=== PATIENT | male | born 1950 | race Caucasian/White ===

== ENCOUNTER 2019-01-19 09:17 | Day surgery (SDC) | payer MEDICARE ==
[2019-01-13 15:32] VITALS: BMI 22.3
[~2019-01-19 09:17] MED LIST: ASPIRIN 325 MG TAB PO STA; SODIUM CHLORIDE 0.9% 1,000 ML in EMPTY BAG 1 BAG IV ONE
[2019-01-19] MEDS ORDERED: SODIUM CHLORIDE 0.9% 1,000 ML IV ONE (10:08)
[2019-01-19] MEDS ORDERED: SODIUM CHLORIDE 0.9% 500 ML 500 ML with niCARdipine 6.25 MG, NITROGLYCERIN-D5W PMX 0.05... IV ONE ×4 (11:00)
[2019-01-19] MEDS ORDERED: MIDAZOLAM (PF) 2 MG/2 ML VIAL IVP ONE (12:02)
[2019-01-19] MEDS ORDERED: LIDOCAINE 1% INJ 10MG/ML (20 ML MDV) SQ ONE (12:04)
[2019-01-19] MEDS ORDERED: HYDROmorphone 1 MG/ML 1 ML SYRINGE IVP ONE (12:13)
[2019-01-19] MEDS ORDERED: HEPARIN SODIUM 1,000 UN/ML (10ML VL) IV ONE (12:16)
[2019-01-19] MEDS ORDERED: CLOPIDOGREL 75 MG TAB PO ONE (13:05)
[2019-01-19] MEDS ORDERED: IOPAMIDOL-250 100ML BTL INTRAARTER ONE (13:10)
[2019-01-19] MEDS ORDERED: SODIUM CHLORIDE 0.9% 1,000 ML IV SCH (13:30)
--- NOTE | 2019-01-19 17:39 | AN ---
ANGIOGRAPHY REPORT DATE OF SERVICE: January 19, 2019 PERFORMING PHYSICIAN: Martin Veras MD, pediatric intensive physician. PROCEDURE PERFORMED: 1. 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 2. Atherectomy of the left popliteal using the orbital atherectomy device from [facility]. 3. Successful balloon angioplasty and stenting of the left popliteal using Zilver PTX drug-coated stent with an excellent angiographic results. 4. Selective left popliteal angiogram. INDICATION: This is a 68-year-old gentleman who was seen recently by Dr. Chaudhary for critical limb ischemia of the left foot. He, at that point, Dr. Chaudhary felt no pedal pulses. Severe obstructive PAD was suspected and because of that, the patient was referred to see me. He underwent a peripheral angiogram and that revealed occluded left popliteal. The patient was brought today to undergo a BISQUE GRADER of the left popliteal. APPROACH: Left posterior tibial artery in ipsilateral retrograde technique. COMPLICATION: None. SEDATION: Level of sedation was moderate. Sedation of 70 minutes. PROCEDURE DESCRIPTION: After obtaining an informed consent, the patient was brought to the cardiac laboratory asst. I accessed the left dorsal posterior tibial artery using micropuncture technique under ultrasound guidance and I placed the slender 4-5 Cymro sheath. I did after that start infusing a cocktail including nitroglycerin, heparin, and verapamil. After that, anticoagulation was initiated using heparin, where the patient was given 6000 units of heparin IV. I did selective left popliteal angiogram with injection through the pedal sheath. 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 I did exchange my wire into a ViperWire. I did atherectomy using the orbital atherectomy device where I did atherectomy under low, medium, and high speed. After that, I did balloon angioplasty using a 6 mm chocolate balloon. The following angiogram showed residual tight lesion in the left popliteal and because of that I decided to stent that segment. I did place 8 x 80 mm Zilver PTX drug-coated stent where the stent was positioned under fluoroscopy guidance and deployed under fluoroscopy guidance. The stent was post dilated using 7 mm balloon. Then the lesion distal lesion in the distal left popliteal I did balloon angioplasty on using drug- coated balloon. The following angiogram showed excellent angiographic results. By the end of the procedure, I was able to obtain 3 2+ pulses in both dorsalis pedis and popliteal. POSTPROCEDURE MANAGEMENT: 1. Dual anti-platelet therapy. 2. Risk factor modifications. 3. Follow up with the patient. ERIC / INDIRAN: [id number] /
[2019-01-19] MEDS: HYDROcodone/APAP 10-325MG 1 EACH TAB PO PRN ×2 (18:35→21:39)
[2019-01-19] MEDS ORDERED: HYDROmorphone 0.5 MG/0.5 ML SYRINGE IVP PRN (19:50)
[2019-01-19] MEDS ORDERED: ATORVASTATIN 20 MG TAB PO SCH (21:00)
[2019-01-20 04:15] VITALS: RESP 16
[2019-01-20 07:12] LABS: African American GFR (CKD) >90 (>60 ml/min/1.73 sqM)
[2019-01-20] MEDS ORDERED: PANTOPRAZOLE 40 MG TABLET PO SCH (07:30)
--- NOTE | 2019-01-20 07:43 | IR ---
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 Fluoroscopy was provided to the referring clinician. 12.4 minutes of fluoroscopy provided.
--- NOTE | 2019-01-20 08:35 | P.PN ---
Subjective Progress Note Date: 01/20/19 Discharge note This is a 68-year-old gentleman who has critical limb ischemia of the left foot severe obstructive PAD, hypertension, hyperlipidemia, nicotine dependence, admitted to the hospital and underwent successful arthrectomy of the left popliteal with successful angioplasty and stenting of the left popliteal. He was seen and examined this morning, slept well last night, no complaints this morning. Hemodynamically he is stable. Objective - Vital Signs Vital signs: Vital Signs Temp 98.3 F 01/20/19 04:00 Pulse 50 L 01/20/19 04:00 Resp 16 01/20/19 04:00 BP 112/77 01/20/19 04:00 Pulse Ox 96 01/20/19 04:00 Intake & Output 01/19/19 01/20/19 01/20/19 18:59 06:59 18:59 Intake Total 1585 220 Output Total 925 Balance 660 220 Weight 71.8 kg Intake: IV 1105 Intake, IV Titration 100 Amount Sodium Chloride 0.9% 1, 100 000 ml @ 100 mls/hr IV . Q10H CANDY Rx#:[id number] Oral 480 120 Output: Urine 925 Other: Voiding Method Urinal Urinal # Voids 2 - Exam PHYSICAL EXAMINATION: GENERAL: 68-year-old gentleman in no acute distress at the time of my examination HEENT: Head is atraumatic, normocephalic. Pupils equal, round. Sclera anicteric. Conjunctiva are clear. Mucous membranes of the mouth are moist. Neck is supple. There is no elevated jugular venous pressure. No carotid bruit is heard. HEART EXAMINATION: Heart S1, S2 normal. No murmur or gallop heard. CHEST EXAMINATION: Lungs are clear to auscultation and precussion. No chest wall tenderness is noted on palpation or with deep breathing. ABDOMEN: Soft, nontender. Bowel sounds are heard. No organomegaly noted. EXTREMITIES: 2+ peripheral pulses with no evidence of peripheral edema and no calf tenderness noted. Left posterior tibial pulse one plus, small area of swelling, no hematoma, fluid is warm. NEUROLOGIC patient is awake, alert and oriented 3 . . - Labs CBC & Chem 7: 01/20/19 06:40 Assessment and Plan Plan: Assessment and plan #1 status post successful angioplasty and stenting of the left popliteal #2 severe PAD #3 hypertension #4 hyperlipidemia #5 nicotine dependence Plan Patient will be discharged home today on dual antiplatelet therapy in the form of aspirin and Plavix, we will continue the rest of his other medications as well. Follow-up appointment with Dr. Schneider in the office post discharge. DNP note has been reviewed, I agree with a documented findings and plan of care. Patient was seen and examined.
[2019-01-20] MEDS ORDERED: ASPIRIN 81 MG PO SCH (09:00)
[2019-01-20] MEDS ORDERED: CLOPIDOGREL 75 MG TAB PO SCH (09:00)
[2019-01-20] MEDS ORDERED: amLODIPine 10 MG TAB PO SCH (09:00)
[2019-01-20] MEDS ORDERED: LISINOPRIL 20 MG TAB PO SCH (09:00)
[2019-01-20] MEDS ORDERED: ASPIRIN 325 MG TAB PO SCH (09:00)
[2019-01-20 09:39] VITALS: BP 134/81; PULSE 63; TEMP 98.1
== END 2019-01-20 09:41 | disposition home or self-care (01) ==
LOC: CATHCVL 09:17 → 3SCARD 13:10 → CATHCVL 01-20 09:41
PROVIDERS: ATTEND Internal Medicine Interventional Cardiology
DX: I70.212 Atherosclerosis of native arteries of extremities with intermittent claudication, left leg (principal); I70.92 Chronic total occlusion of artery of the extremities; Z95.820 Peripheral vascular angioplasty status with implants and grafts; I10 Essential (primary) hypertension; E78.5 Hyperlipidemia, unspecified; F17.210 Nicotine dependence, cigarettes, uncomplicated; Z82.49 Family history of ischemic heart disease and other diseases of the circulatory system; Z79.82 Long term (current) use of aspirin; Z79.891 Long term (current) use of opiate analgesic; Z79.899 Other long term (current) drug therapy; Z88.2 Allergy status to sulfonamides
CPT/HCPCS: 37227; 76937; 82565; C1769 ×5; C1894; C1714; C1753; C2623; C1874; C1725; J1644 ×2; J2001; J1170; Q9966; J2250

== ENCOUNTER → 2022-09-01 | Outpatient (CLI) | payer MEDICARE ==
[2022-09-01 08:38] VITALS: BP 165/90; PULSE 62; RESP 18; TEMP 98.4
--- NOTE | 2022-09-01 09:20 | XR ---
EXAMINATION TYPE: XR lumbar spine 2 or 3V DATE OF EXAM: 09/01/2022 CLINICAL HISTORY: pain TECHNIQUE: Three views of the lumbar spine are submitted. COMPARISON: None. FINDINGS: There are 5 lumbar type vertebral bodies identified. Curvature convex to the right. Postoperative ch anges of prior laminectomy. The lumbar spine shows satisfactory alignment without evidence of acute f racture or dislocation. Vertebral body heights are within normal limits. Moderate degenerative disc space narrowing L3-L5 S1. The overlying soft tissue appears unremarkable. IMPRESSION: No acute fracture or dislocation is seen in the lumbar spine. ICD 10 NO FRACTURE, INITIAL EVALUATION
--- NOTE | 2022-09-01 14:53 | P.PAINPG ---
PQRS Measure Charge Sheet Comment: HISTORY OF PRESENT ILLNESS: 72 yr old male as a referral from presents today w severe and chronic LBP secondary to DDD, spondylosis and facet arthropathy without myelopathy for evaluation. Pt states pain level is at 10 /10 in intensity, constant, localized in the mid to lower lumbar spine, burning in character w shooting pain towards the BL feet. Pain is provoked by sitting for periods of 30 or more. Pain is alleviated by medications (Fentanyl patches, Tyl, Ibu), topicals, injections, repositioning and rest. PMH: CAD, GERD, HTN, Musculoskeletal Disorder, PAD, MDD PSH: Femoral Artery Stent (2006), Failed SCS Trial, L2-L4 Laminectomy, LESIs, BL RFA L3-L5 SH: Former tobacco user, No ETOH abuse, No illicit drug use. lives in assisted living facility. FH: Non contributory All: See list Meds: See list REVIEW OF ORGAN SYSTEMS: CONSTITUTIONAL: No fevers or chills. No recent weight loss. NEUROLOGICAL: + numbness and tingling along the distal extremities. No seizure disorders or headaches. MUSCULOSKELETAL: + pain PSYCHIATRIC: Denies current depression or suicidal thoughts. Physical Examinations : Constitutional : Cooperative , not in acute distress . Neurologic : Cranial nerve II to XII intact. No focal neurological deficits. Psychiatric : alert & oriented x 3. Matching mood & appropriate affect. Judgment & insight intact. Musculoskeletal : Cervical Spine Motor strength in the deltoid and biceps: Normal right side. Normal Left side Motor strength biceps and the wrist extensors: Normal right side . Normal left side Motor strength in the triceps muscle: Normal right side. Normal left side Deep tendon reflexes: Normal at the biceps. Normal at Brachioradialis. Normal at triceps Vertebral body tenderness to deep palpation over Cervical facet loading test: positive bilaterally Spurling test: positive bilaterally Neck distraction test: positive bilaterally Jazmyne sign: positive bilaterally Lumbar spine Motor strength lower extremities ,thigh and legs 5/5 Right side , 5/5 Left side Deep tendon reflexes : Normal Knee Jerk. Normal Ankle Jerk Vertebral body tenderness over L5 Lumbar facet Loading Test: positive Right / positive Left Range of motion of the lumbar spine Flexion 30 degrees, extension 10 degrees Straight Leg Raise test: Left/ Right positive at degree Jaren test: positive right / positive left. Severe tenderness over the Sacroiliac joint on the Right / Left sides Gaenslen test: positive bilaterally Seated flexion test: positive bilater ally. Sacral spine : Severe tenderness over the Sacroiliac joint: right side / left side Range of motion: Flexion of the lumbar spine <60 degrees Range of motion: Extension of the lumbar spine <20 degrees Gaenslen's Test positive Ace's Test positive Jaren test: positive right side / left side Thigh Thrust Test Sacral Thrust Test Imaging: MRI without contrast of the lumbar spine from 01/08/2012 reviewed Assessment/ Plan : Lumbar DDD Recommendation of x ray of the lumbar spine Dx: M51.36 May need additional testing if indicated. May follow up in the clinic within 2 wks for a re evaluation. All questions answered. I have spent greater than 30 minutes on patient care today. Dr Zhou was available by phone for the evaluation of this patient. The time was used to review the medical records including relevant urine studies and Prescription history (MAPs), review of the available imaging, evaluation and examination of the patient, coordination of care with the medical staff and if applicable referring physicians, as well as creation of the medical record PQRS Narrative: Smoking Status Never smoker Narcotic Agreement Date Signed 11/08/12 Home Medications: Ambulatory Orders Pantoprazole Sodium [Protonix] 40 mg PO DAILY 12/11/14 amLODIPine BESYLATE/BENAZEPRIL [Lotrel 10-20 MG] 1 tab PO DAILY 12/11/14 Aspirin 81 mg PO DAILY 01/13/19 fentaNYL 100MCG/HR PATCH [Duragesic 100MCG/HR] 100 mcg TOPICAL Q48H 01/13/19 Atorvastatin [Lipitor] 20 mg PO HS #30 tab 01/20/19 Clopidogrel [Plavix] 75 mg PO DAILY #30 tab 01/20/19 Controlled Substance Measures - Controlled Substance Measures Is patient prescribed a controlled substance at discharge?: No
== END ==
LOC: PNWHC3 07:51
PROVIDERS: ATTEND Specialist
DX: M47.816 Spondylosis without myelopathy or radiculopathy, lumbar region (principal); M51.36 Other intervertebral disc degeneration, lumbar region; G89.29 Other chronic pain; I25.10 Atherosclerotic heart disease of native coronary artery without angina pectoris; K21.9 Gastro-esophageal reflux disease without esophagitis; I10 Essential (primary) hypertension; R29.91 Unspecified symptoms and signs involving the musculoskeletal system; I73.9 Peripheral vascular disease, unspecified; F32.9 Major depressive disorder, single episode, unspecified; Z88.2 Allergy status to sulfonamides
CPT/HCPCS: 72100; G0463; 99211

== ENCOUNTER → 2022-09-17 | Outpatient (CLI) | payer MEDICARE ==
[2022-09-17 11:40] VITALS: BP 128/84; PULSE 71; RESP 18; TEMP 98
--- NOTE | 2022-09-17 14:42 | P.PAINPG ---
PQRS Measure Charge Sheet Comment: A 72 yr old male with a history of severe and chronic LBP secondary to post laminectomy syndrome presents today for LBP evaluation. Pain level is provoked at 10 /10 in intensity, constant, localized in the lumbar spine, dull in character w shooting towards the BL hips and BL feet. Pain is provoked by bendin g. Pain is alleviated with medications (Fentanyl 100 MCG/HR, Tylenol), injections, repositioning and rest. Interventional pain procedures completed include BL RFA L3-L5, L2-L5 Laminectomy Patient is currently on Fentanyl 100mcg/hr, Tyl Patient denies any side effects of the medication(s), denies excessive drowsiness or sleepiness, denies suicidal ideation and reports that the current pain medication is helping to control the pain and improve activities of daily living. Patient denies any motor or sensory deficits. Patient denies any fever or night sweats, denies any change in the bowel movements or urination. Physical Examination: -Constitutional: Cooperative. Not in acute distress . - Neurologic: Cranial nerve II to XII intact. No focal neurological deficits. - Psychatric: Alert & oriented x 3. Matching mood & appropriate affect. Judgment and insight intact. - Musculoskeletal: Cervical spine: Muscle bulk/ tone/ strength in the bilateral upper extremities normal Vertebral body tenderness to palpation over Spurling test positive Distraction test positive Facet loading test positive TTP Thoracic spine Muscle bulk / tone/ strength in the bilateral paraspinal muscles normal Vertebral body tender to palpation over Facet loading test positive TTP Lumbar spine: Motor bulk/ tone/ strength lower extremities , thigh and legs : 5/5 Deep tendon reflexes : Normal Knee Jerk. Normal Ankle Jerk . Vertebral body tenderness to palpation over L5 Lumbar Facet Loading Test positive Straight Leg Raise: positive at 30 degrees right side/ left side Gaenslen's Test positive Sacral spine : Severe tenderness over the Sacroiliac joint: right side / left side Range of motion: Flexion of the lumbar spine <60 degrees Range of motion: Extension of the lumbar spine <20 degrees Gaenslen's Test positive right side / left side Jaren test: positive right side / left side Thigh Thrust Test positive right side / left side Sacral Thrust Test positive right side / left side Imaging: X-ray of the lumbar spine from 09/01/22 reviewed Assessment and plan: Chronic LBP secondary to post laminectomy syndrome Recommendation of BL TFESI L5-S1 #1. May need a series of injections for optimal pain relief. Risks, benefits of procedure discussed and pt verbalized understanding. All questions answered. I have spent less than 30 minutes on patient care today. Dr Zhou was available by phone for the evaluation of this patient. The time was used to review the medical records including relevant urine studies and Prescription history (MAPs), review of the available imaging, evaluation and examination of the patient, coordination of care with the medical staff and if applicable referring physicians, as well as creation of the medical record PQRS Narrative: Smoking Status Never smoker Narcotic Agreement Date Signed 11/08/12 Hx Alcohol Use (MH) Yes: OCCASIONAL Home Medications: Ambulatory Orders Pantoprazole Sodium [Protonix] 40 mg PO DAILY 12/11/14 amLODIPine BESYLATE/BENAZEPRIL [Lotrel 10-20 MG] 1 tab PO DAILY 12/11/14 Aspirin 81 mg PO DAILY 01/13/19 fentaNYL 100MCG/HR PATCH [Duragesic 100MCG/HR] 100 mcg TOPICAL Q48H 01/13/19 Atorvastatin [Lipitor] 20 mg PO HS #30 tab 01/20/19 Clopidogrel [Plavix] 75 mg PO DAILY #30 tab 01/20/19 Controlled Substance Measures - Controlled Substance Measures Is patient prescribed a controlled substance at discharge?: No
== END ==
LOC: PNWHC3 08:41
PROVIDERS: ATTEND Specialist
DX: M96.1 Postlaminectomy syndrome, not elsewhere classified (principal); G89.29 Other chronic pain; Z79.82 Long term (current) use of aspirin; Z88.2 Allergy status to sulfonamides
CPT/HCPCS: 99211

== ENCOUNTER 2022-10-16 09:47 | Day surgery (SDC) | payer MEDICARE ==
[2022-10-16] MEDS ORDERED: LACTATED RINGERS 1,000 ML IV ONE (10:52)
[2022-10-16 11:05] VITALS: RESP 16; TEMP 97.7
[2022-10-16] MEDS ORDERED: DEXAMETHASONE SOD PHOSPHATE 10 MG/ML 1 ML VIAL ONE (11:15)
[2022-10-16] MEDS ORDERED: IOPAMIDOL M200 10 ML VIAL ONE (11:15)
[2022-10-16] MEDS ORDERED: MIDAZOLAM 2 MG/2 ML VIAL ONE (11:15)
--- NOTE | 2022-10-16 11:28 | P.PCN ---
Date of Procedure: 10/16/22 Description of Procedure: PREOPERATIVE DIAGNOSIS: Lumbar radiculopathy POSTOPERATIVE DIAGNOSIS: Lumbar radiculopathy PROCEDURES: 1. Right side L5-S1 Transforaminal epidural steroid injection under fluoroscopic guidance 2. Lumbar epidurogram. SURGEON: Serafin Alves TOOL AND MACHINE MAINTAINER: None ANESTHESIA: Local , IV sedation : Versed 2 mg Sedation supervision [id number] EBL: None. PROCEDURE INDICATIONS: This patient with a history of lumbar radiculopathy. Failed with conservative therapy came here for intervention procedure management. So came here for the intervention procedure . PROCEDURE DESCRIPTION: The patient was seen and identified in the preoperative area. Risks, benefits, complications, and alternatives were discussed with the patient. The patient agreed to proceed with the procedure and signed the consent. IV was started, and vital signs were stable. Patient was taken to the OR and time out was completed. The patient was placed in the prone position on procedure table and a pillow was placed under the abdomen to reduce lumbar lordosis. The lumbosacral area was prepped with ChloraPrep and draped in the usual sterile fashion. Critical pause was taken. Vital signs were closely monitored during the procedure. Using oblique fluoroscopy, the chin of the Ozzie dog at right side L5 and the skin and deeper tissues just below was localized with 1% lidocaine. Subsequently, a 22-gauge 3.5- spinal needle was advanced under a tunneled view fluoroscopic guidance just underneath the chin of the Ozzie dog at left L5. Under lateral fluoroscopy, the needle was then advanced to the posterior border of the L5 interforaminal space. After negative aspiration of CSF and blood and with no paresthesias, 1 mL of [id number] dye was injected good epidurogram and outlining of the L5 nerve root. After negative aspiration of CSF, blood and with no paresthesia 3 mL of block solution containing 10 MG of dexamethasone mixed with 2 mL of normal saline preservative-free was injected. Needle was removed intact. Skin was cleansed, and bandages were applied. COMPLICATIONS: None. DISPOSITION / PLANS: The patient was placed in a supine position and transferred to the recovery area in a stable condition for observation. There was no evidence of lower extremity motor or sensory deficit after the procedure. Patient was discharged from the recovery room after meeting discharge criteria. Home discharge instructions were given to the patient by the staff. The patient was reexamined prior to discharge. Patient can follow up with the pain clinic in 4 weeks duration.
[2022-10-16] MEDS ORDERED: LACTATED RINGERS 1,000 ML IV SCH (11:30)
[2022-10-16] MEDS ORDERED: IV FLUID CONTINUATION 1,000 ML IV ONE (11:32)
[2022-10-16 11:47] VITALS: BP 130/68; PULSE 53
--- NOTE | 2022-10-16 15:47 | FL ---
EXAMINATION TYPE: FL guided pain mgmt statistic DATE OF EXAM: 10/16/2022 FLUOROSCOPY Fluoroscopy time of 8 seconds was used during right transforaminal epidural injection. 3 image/s doc ument/s the procedure. DOSE AREA PRODUCT (DAP) UGY*M,MGY*CM: 1.5
== END 2022-10-16 12:03 | disposition home or self-care (01) ==
LOC: ORPAIN 09:47
DX: M54.16 Radiculopathy, lumbar region (principal); K21.9 Gastro-esophageal reflux disease without esophagitis; G90.09 Other idiopathic peripheral autonomic neuropathy; Z86.79 Personal history of other diseases of the circulatory system; Z90.49 Acquired absence of other specified parts of digestive tract; Z98.890 Other specified postprocedural states; Z79.899 Other long term (current) drug therapy; Z88.2 Allergy status to sulfonamides
CPT/HCPCS: 64483; J2250; J1100; Q9966

== ENCOUNTER → 2022-10-21 | Outpatient (CLI) | payer MEDICARE ==
[2022-10-21 13:49] LABS: African American GFR (CKD) >90 (>60 ml/min/1.73 sqM); Blood Urea Nitrogen 11 mg/dL (9-20); Non-African American GFR(CKD) 88 (>60 ml/min/1.73 sqM)
--- NOTE | 2022-10-21 15:45 | CT ---
EXAMINATION TYPE: CT angio abd aorta w/Runoff DATE OF EXAM: 10/21/2022 COMPARISON: None INDICATION: PAD. LEFT LITTLE TOES POOR CIRCULATION. HX OF LEFT FEMORAL STENTS DLP: 1672.10 mGycm, Automated exposure control for dose reduction was used. CONTRAST: 100 mL of Isovue 370. Study performed without Oral Contrast TECHNIQUE: Axial images were obtained from above the diaphragm to the pubic rami in the axial plane a t 5 mm thick sections. Reconstructed images are reviewed on the computer in the coronal plane. FINDINGS: Aorta and runoff. Vascular calcifications within the abdominal aorta. Renal arteries and calcificatio n at their origins. Superior mesenteric artery and celiac axis have calcification at their origins. N o aneurysmal dilatation is evident. No dissection is evident. Aorta bifurcates in the common carotid arteries. Internal and external iliac arteries are patent. Common femoral arteries appear normal. Pro kiah femoris and superficial femoral arteries proximally are normal. Scattered vascular calcifications are within the mid and distal superficial femoral arteries. No sign ificant flow-limiting stenosis is identified. Obturator canals are normal. Vascular calcifications wi thin the popliteal arteries. No focal stenosis. There may be some narrowing within the mid posterior popliteal artery. Left lower extremity vascular structures appear small in caliber than on the right. Trifurcation vess els are identified bilaterally in their proximal origins. Left peroneal artery terminates within the mid calf region. Right peroneal artery appears to terminate above the level of the ankle. Anterior an d posterior tibial arteries are patent at the level of the ankle. Limited CT sections are obtained the lung bases. There is a 1.2 cm spiculated posterior pleural-base d density left lung base. Series 6 image 6. Consider additional workup for neoplasm.. CT ABDOMEN: Liver: Normal Spleen: Normal Pancreas: Somewhat atrophic Adrenal glands: The adrenal glands are normal. Gallbladder: Surgically absent Kidneys: No masses are evident. No hydronephrosis is present. No cysts are present. Aorta: Vascular calcification is within the aorta. Inferior vena cava: Normal. CT PELVIS: Loops of bowel within the abdomen and pelvis are normal. There are loops of bowel which are incom pletely distended or lack oral contrast limiting their evaluation. Appendix: Normal as visualized. Urinary bladder: Normal. Genitourinary structures: Prostate is slightly prominent contains calcification Osseous structures: No suspicious lytic or sclerotic lesions. IMPRESSIONS: 1. Appears to be termination of the peroneal arteries within the calf for the left side and near the level of the ankle on the right. 2. Some focal mild narrowing of the mid posterior left popliteal artery may be present. 3. Caliber of the left superficial femoral artery is slightly smaller than on the right. Focal stenos is is not identified.
== END | disposition home or self-care (01) ==
LOC: RADCTMAIN 12:57
PROVIDERS: ATTEND Internal Medicine Interventional Cardiology
DX: I65.23 Occlusion and stenosis of bilateral carotid arteries (principal); I73.9 Peripheral vascular disease, unspecified; I77.89 Other specified disorders of arteries and arterioles; Z95.820 Peripheral vascular angioplasty status with implants and grafts
CPT/HCPCS: 82565; 84520; 75635; 36415; Q9967

== ENCOUNTER → 2023-02-25 | Outpatient (CLI) | payer MEDICARE ==
[2023-02-25 10:26] VITALS: BP 177/89; PULSE 63; RESP 16; TEMP 98
--- NOTE | 2023-02-25 14:17 | P.PAINPG ---
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 Pt states he experienced 25 % pain relief x 4 mo s/p procedure. He recently placed his in a senior living. Pain level is provoked at 10 /10 in intensity, constant, localized in the lumbar spine, dull in character w shooting towards the BL feet and toes. Pain is provoked by bending. Pain is alleviated with medications (Fentanyl 100 MCG/HR, Tylenol), injections, repositioning and rest. Pt is interested in an SCS. He is no longer receiving [place] 10/[address] Palomares. Agreed to terms of narcotics/ opiate agreement for [place] 7.5/325mg + Robaxin at this time. Oswestry axial pain score of 27. Interventional pain procedures completed include BL RFA L3-L5, L2-L5 Laminectomy, R TFESI L5-S1 x1 Patient is currently on Fentanyl 100mcg/hr, Tyl Patient denies any side effects of the medication(s), denies excessive drowsiness or sleepiness, denies suicidal ideation and reports that the current pain medication is helping to control the pain and improve activities of daily living. Patient denies any motor or sensory deficits. Patient denies any fever or night sweats, denies any change in the bowel movements or urination. Physical Examination: -Constitutional: Cooperative. Not in acute distress . - Neurologic: Cranial nerve II to XII intact. No focal neurological deficits. - Psychatric: Alert & oriented x 3. Matching mood & appropriate affect. Judg ment and insight intact. - Musculoskeletal: Cervical spine: Muscle bulk/ tone/ strength in the bilateral upper extremities normal Vertebral body tenderness to palpation over Spurling test positive Distraction test positive Facet loading test positive TTP Thoracic spine Muscle bulk / tone/ strength in the bilateral paraspinal muscles normal Vertebral body tender to palpation over Facet loading test positive TTP Lumbar spine: Motor bulk/ tone/ strength lower extremities , thigh and legs : 5/5 Deep tendon reflexes : Normal Knee Jerk. Normal Ankle Jerk . Vertebral body tenderness to palpation over L5 Lumbar Facet Loading Test positive Straight Leg Raise: positive at 30 degrees right side/ left side Gaenslen's Test positive Sacral spine : Severe tenderness over the Sacroiliac joint: right side / left side Range of motion: Flexion of the lumbar spine <60 degrees Range of motion: Extension of the lumbar spine <20 degrees Gaenslen's Test positive right side / left side Jaren test: positive right side / left side Thigh Thrust Test positive right side / left side Sacral Thrust Test positive right side / left side Imaging: X-ray of the lumbar spine from 09/01/22 reviewed Assessment and plan: Chronic LBP secondary to post laminectomy syndrome Recommendation of Behavioral Health eval re: G 89.4, M 54.16. Video viewed for SCS Trial. Risks, benefits of procedure discussed and pt verbalized understanding. Opiate/ narcotic agreement signed today 02/07/23. [place] 7.5/325mg #120 , Robaxin 500mg #60 w 1 RF. Use, side effects, adverse reactions and safe storage discussed. Pt acknowledged understanding. MAPS reviewed. All questions answered. I have spent less than 30 minutes on patient care today. Dr Zhou was available by phone for the evaluation of this patient. The time was used to review the medical records including relevant urine studies and Prescription history (MAPs), review of the available imaging, evaluation and examination of the patient, coordination of care with the medical staff and if applicable referring physicians, as well as creation of the medical record PQRS Narrative: Smoking Status Never smoker Narcotic Agreement Date Signed 11/08/12 Hx Alcohol Use (MH) Yes: OCCASIONAL Home Medications: Ambulatory Orders Pantoprazole Sodium [Protonix] 40 mg PO DAILY 12/11/14 Aspirin 81 mg PO DAILY 01/13/19 fentaNYL 100MCG/HR PATCH [Duragesic 100MCG/HR] 100 mcg TOPICAL Q48H 01/13/19 Atorvastatin [Lipitor] 20 mg PO HS #30 tab 01/20/19 Clopidogrel [Plavix] 75 mg PO DAILY #30 tab 01/20/19 Benazepril HCl 10 mg PO DAILY 10/15/22 DULoxetine HCL [Cymbalta] 60 mg PO DAILY 10/15/22 Ondansetron Odt [Zofran ODT] 4 mg PO DAILY PRN 10/15/22 Tamsulosin [Flomax] 0.4 mg PO DAILY 10/15/22 busPIRone HCL 15 mg PO Q6H PRN 10/15/22 Controlled Substance Measures - Controlled Substance Measures Is patient prescribed a controlled substance at discharge?: Yes When asked, does pt state using other controlled substances?: Yes If prescribed controlled substance>3 days was MAPS reviewed?: Yes If Rx opioid, was Start Talking consent form obtained?: Yes Was information provided regarding opioid addiction?: Yes
== END ==
LOC: PNWHC3 09:28
PROVIDERS: ATTEND Anesthesiology
DX: M51.16 Intervertebral disc disorders with radiculopathy, lumbar region (principal); M96.1 Postlaminectomy syndrome, not elsewhere classified; G89.4 Chronic pain syndrome; Z88.2 Allergy status to sulfonamides; Z79.01 Long term (current) use of anticoagulants; Z79.02 Long term (current) use of antithrombotics/antiplatelets; Z79.82 Long term (current) use of aspirin
CPT/HCPCS: 99211

== ENCOUNTER 2023-05-13 08:39 | Day surgery (SDC) | payer MEDICARE ==
[2023-05-07 18:12] VITALS: BMI 21.6
[~2023-05-13 08:39] MED LIST changes: +ALPRAZolam 0.25 MG TAB PO PRN; +ASPIRIN 325 MG TAB PO PRN; -ASPIRIN 325 MG TAB PO STA
[2023-05-13] MEDS ORDERED: SODIUM CHLORIDE 0.9% 1,000 ML IV ONE (08:57)
[2023-05-13 09:25] LABS: Basophils # (A) 0.1 k/uL (0-0.2); Basophils % (A) 1 %; Eosinophils # (A) 0.4 k/uL (0-0.7); Eosinophils % (A) 7 %; HCT 47.7 % (39.0-53.0); HGB 15.5 gm/dL (13.0-17.5); Lymphocytes # (A) 2.1 k/uL (1.0-4.8); Lymphocytes % (A) 34 %; MCH 32.8 pg (25.0-35.0); MCHC 32.5 g/dL (31.0-37.0); MCV 100.9 fL (80.0-100.0); Mean Platelet Volume 7.3; Monocytes # (A) 0.3 k/uL (0-1.0); Monocytes % (A) 5 %; Neutrophils # (A) 3.2 k/uL (1.3-7.7); Neutrophils % (A) 51 %; Platelet Count 186 k/uL (150-450); RBC 4.73 m/uL (4.30-5.90); RDW 12.2 % (11.5-15.5); WBC 6.3 k/uL (3.8-10.6)
[2023-05-13 09:31] VITALS: RESP 16; TEMP 98
[2023-05-13 09:33] LABS: African American GFR (CKD) >90 (>60 ml/min/1.73 sqM); Anion Gap 10 mmol/L; Blood Urea Nitrogen 14 mg/dL (9-20); Calcium 9.8 mg/dL (8.4-10.2); Carbon Dioxide 27 mmol/L (22-30); Chloride 101 mmol/L (98-107); Glucose 107 mg/dL (74-99); Non-African American GFR(CKD) 87 (>60 ml/min/1.73 sqM); Potassium 4.5 mmol/L (3.5-5.1); Sodium 138 mmol/L (137-145)
[2023-05-13] MEDS ORDERED: LIDOCAINE 1% INJ 10MG/ML (20 ML MDV) ONE (11:21)
[2023-05-13] MEDS ORDERED: niCARdipine 25 MG/10 ML VIAL ONE (11:21)
[2023-05-13] MEDS ORDERED: HEPARIN SODIUM 1,000 UN/ML (10ML VL) ONE (11:30)
[2023-05-13] MEDS ORDERED: MIDAZOLAM 2 MG/2 ML VIAL IVP ONE (11:36)
[2023-05-13] MEDS ORDERED: LIDOCAINE 1% INJ 10MG/ML (20 ML MDV) SQ ONE (11:36)
[2023-05-13] MEDS ORDERED: SODIUM CHLORIDE 0.9% 500 ML 500 ML with niCARdipine 6.25 MG, NITROGLYCERIN-D5W PMX 0.05... IV ONE ×4 (11:40)
[2023-05-13] MEDS ORDERED: IOPAMIDOL-250 100ML BTL IVP ONE (11:47)
[2023-05-13] MEDS ORDERED: NALOXONE 0.4 MG/ML 1 ML VIAL IVP PRN (12:09)
[2023-05-13] MEDS ORDERED: SODIUM CHLORIDE 0.9% 1,000 ML in EMPTY BAG 1 BAG IV SCH (12:15)
--- NOTE | 2023-05-13 12:15 | P.PCN ---
Date of Procedure: 05/13/23 Operative Findings: LEFT LOWER EXTREMITY ANGIOGRAM PERFORMING PHYSICIAN: Martin Veras MD PROCEDURE PERFORMED: 1. Left lower extremity angiogram 2. Ultrasound-guided access of the left common femoral artery INDICATION: Severe left lower extremity discomfort with exertion concerning for intermittent claudication COMPLICATION: None LEVEL OF SEDATION: Moderate was sedation length of 15 minutes APPROACH: Right common femoral artery PROCEDURE DESCRIPTION: After obtaining informed consent and explaining the procedure benefits, risks, and complications, the patient was brought to the cardiac laboratory tester. The left groin was prepped and draped in sterile fashion. The left common femoral artery was cannulated using micropuncture technique, under ultrasound guidance. that was performed under ultrasound guidance. A micropuncture wire was advanced, and the micropuncture sheath was advanced over the wire, then the micropuncture sheath was secured to the skin using Tegaderm and connected with a side arm for manual contrast injection. I did performed left lower extremity angiogram with injection through the sheath. The procedure was completed was no complication SELECTIVE PERIPHERAL ANGIOGRAM: The abdominal aorta: Was not opacified The common iliac arteries: Was not opacified The external iliac arteries: Appeared to be angiographically normal The internal iliac arteries: Was not opacified The common femoral arteries: Is heavily calcified was with it seems to be flow limiting lesion Superficial femoral arteries: Is heavily calcified with a critical lesion appears to be part of the left common femoral lesion Popliteal arteries: Is heavily calcified and the stented and the stent appeared to be occluded Below the knees: Three-vessel runoff below the knee noted CONCLUSION: Heavily calcified left common femoral artery with flow limiting lesion Heavily calcified ostial left SFA with a flow-limiting lesion Occluded left popliteal POSTPROCEDURE MANAGEMENT: Endarterectomy of the left common femoral artery and left SFA
--- NOTE | 2023-05-13 12:22 | IR ---
EXAMINATION TYPE: IR angio extremity LT DATE OF EXAM: 05/13/2023 COMPARISON: NONE HISTORY: Fluoroscopy time. Fluoroscopy was provided to the referring clinician.
[2023-05-13 16:38] VITALS: BP 112/57; PULSE 53
== END 2023-05-13 16:39 | disposition home or self-care (01) ==
LOC: CATHCVL 08:39
PROVIDERS: ATTEND Internal Medicine Interventional Cardiology
DX: I73.9 Peripheral vascular disease, unspecified (principal); I10 Essential (primary) hypertension; E78.5 Hyperlipidemia, unspecified; Z82.49 Family history of ischemic heart disease and other diseases of the circulatory system; Z79.899 Other long term (current) drug therapy
CPT/HCPCS: 36245; 75710; 80048; 85025; C1769 ×3; C1894; J2250; J2001; Q9966

== ENCOUNTER 2023-07-16 05:44 | Inpatient (IN) | payer MEDICARE ==
[2023-07-09 11:18] VITALS: BMI 21.0
[2023-07-16] MEDS ORDERED: LIDOCAINE 1% (10MG/ML) FOR IV START INTRADERMA PRN (06:16)
[2023-07-16] MEDS: LACTATED RINGERS 1,000 ML IV SCH (06:35)
[2023-07-16 06:47] LABS: Basophils % (A) 1 %; Eosinophils # (A) 0.3 k/uL (0-0.7); Eosinophils % (A) 6 %; HCT 41.6 % (39.0-53.0); Lymphocytes # (A) 1.2 k/uL (1.0-4.8); Lymphocytes % (A) 24 %; MCH 33.1 pg (25.0-35.0); MCHC 33.5 g/dL (31.0-37.0); MCV 98.8 fL (80.0-100.0); Monocytes # (A) 0.4 k/uL (0-1.0); Monocytes % (A) 7 %; Neutrophils % (A) 60 %; Platelet Count 180 k/uL (150-450); RBC 4.21 m/uL (4.30-5.90); RDW 12.8 % (11.5-15.5); WBC 5.1 k/uL (3.8-10.6)
[2023-07-16] MEDS: MIDAZOLAM 2 MG/2 ML VIAL IV PRN (06:49)
[2023-07-16] MEDS ORDERED: HYDROmorphone 0.5 MG/0.5 ML SYRINGE IVP PRN (07:00)
[2023-07-16] MEDS: DEXAMETHASONE SOD PHOSPHATE 4 MG/ML 1 ML VIAL IV ONE (07:10)
[2023-07-16] MEDS: ONDANSETRON 4 MG/2 ML VIAL IVP ONE (07:11)
[2023-07-16] MEDS ORDERED: PROTAMINE SULFATE 10 MG/ML 5 ML VIAL ONE (07:22)
[2023-07-16] MEDS ORDERED: PROPOFOL 10 MG/ML 20 ML VIAL IV ONE (07:22)
[2023-07-16] MEDS ORDERED: SUCCINYLCHOLINE CHLORIDE 200 MG/10 ML VIAL IV ONE (07:22)
[2023-07-16] MEDS ORDERED: ePHEDrine 50 MG/ML 1 ML VIAL ONE (07:22)
[2023-07-16] MEDS ORDERED: NEOSTIGMINE 1 MG/ML 10 ML VIAL ONE (07:22)
[2023-07-16] MEDS ORDERED: ACETAMINOPHEN IV (For NPO) 1,000 MG/100 ML VIAL ONE (07:22)
[2023-07-16] MEDS ORDERED: fentaNYL (PF) 50 MCG/ML 2 ML AMP ONE (07:22)
[2023-07-16] MEDS ORDERED: LIDOCAINE 1% INJ 10MG/ML (20 ML MDV) ONE (07:22)
[2023-07-16] MEDS ORDERED: HEPARIN SODIUM,PORCINE 10,000 UNIT/ML 1 ML VIAL ONE (07:22)
[2023-07-16] MEDS ORDERED: KETAMINE HCL IN 0.9 % NACL 50 MG/5 ML SYRINGE ONE (07:22)
[2023-07-16] MEDS ORDERED: ROCURONIUM 10 MG/ML (5 ML VIAL) IV ONE (07:22)
[2023-07-16] MEDS ORDERED: SUGAMMADEX SODIUM 200 MG/2 ML SDV IV ONE (07:22)
[2023-07-16] MEDS ORDERED: GLYCOPYRROLATE 0.2 MG/ML 2 ML VIAL ONE (07:22)
--- NOTE | 2023-07-16 07:22 | P.ANPRN ---
Procedure Note - Anesthesia - Invasive Line Right Arterial Line Time Out Performed: Yes Date of Procedure: 07/16/23 Time of Procedure: 06:51 Location of Patient: PreOp (Skin was localized with Lidocaine 1%) Preparation: Sterile Prep Arterial Line Location: Radial Ultrasound Used: No Narrative: Central line placement per sterile protocol utilized.
[2023-07-16] MEDS: ceFAZolin 2 GM in SODIUM CHLORIDE 0.9% 500 ML 500 ML IRRIGATION ONE (08:43)
[2023-07-16] MEDS: HEPARIN SODIUM,PORCINE (1 ML) 2,000 UNIT in SODIUM CHLORIDE 0.9% 500 ML 500 ML IRRIGATION ONE (08:48)
[2023-07-16] MEDS: GELATIN SPONGE,ABSORB (LARGE) 1 EACH SPONGE TOPICAL ONE (09:21)
[2023-07-16] MEDS: THROMBIN (BOVINE) 5,000 UNIT VIAL TOPICAL ONE (09:25)
--- NOTE | 2023-07-16 09:55 | P.OP ---
Date of Procedure: 07/16/23 Description of Procedure: Preoperative diagnosis: Left femoral artery occlusive disease Postoperative diagnosis: Same Procedure: Left common and superficial femoral endarterectomy with patch angioplasty Surgeon: Janet Ferguson D.O. EBL: 50 cc IV fluids: See records Urine output: See records Drains: None Complications: None immediately apparent Condition: Stable to recovery Operative indication and findings: Patient is a 73-year-old male with severe lifestyle limiting claudication of his left lower extremity who on workup and imaging was found to have femoral and superficial femoral artery occlusive disease. The recommendation was to undergo open surgical intervention for this. Risk and benefits were discussed. He seemingly understood and was willing to proceed. Procedure in detail: The patient was taken to the operative suite and placed in supine position. Bilateral groins prepped and draped in usual sterile fashion. A preprocedure timeout was performed and all parties are in agreement. A vertical incision was made in the left groin with the scalpel. It was deepened through subcutaneous tissues with electrocautery. The encountered lymphatics were ligated and divided. The femoral sheath was opened sharply. The common femoral artery was dissected free circumferentially. The dissection was extended proximally to the level of the inguinal ligament and subsequently the inguinal ligament was further retracted and the external iliac artery was dissected free and encircled, and distally to include the superficial femoral and profunda femoris arteries. The superficial femoral artery was dissected free for a segment of about 8 to 9 cm until an area with no circumstantial d isease was noted. They were encircled with vessel loops. ACTs were monitored and the patient was heparinized. Once heparinization was adequate, flow was occluded through the vessel. An 11 blade was utilized and arteriotomy is made the Tripathi-Medrano scissors was utilized to enlarge the arteriotomy. An endarterectomy was performed with an eversion endarterectomy at the profunda femoris. The endarterectomized surface was cleared of all debris. A bovine pericardial patch was utilized and anastomosis was created utilizing 6-0 Prolene. The anastomosis was flushed and flow was reinstituted. Hemostasis was achieved with interrupted sutures of 6-0 Prolene and thrombin and Gelfoam. A Doppler was used and revealed multiphasic flow distal to the anastomosis. At that point, the wound was copiously irrigated with antibiotic solution. The femoral sheath was reapproximated with interrupted sutures of 3-0 Vicryl. The subcuticular tissue was reapproximated with 3-0 Vicryl. The skin was reapp roximated with running sutures of 4-0 Monocryl. Dressing was placed. The patient was awakened from surgery, extubated and transferred to PACU in stable condition and tolerated the procedure well. He had multiphasic signal now at his DP and PT
[2023-07-16] MEDS ORDERED: HYDROcodone/APAP 5-325MG 1 EACH TAB PO PRN (09:56)
[2023-07-16] MEDS ORDERED: MORPHINE SULFATE 4 MG/ML SYRINGE IVP PRN (09:56)
[2023-07-16] MEDS: SODIUM CHLORIDE 0.9% 1,000 ML IV SCH (12:15)
[2023-07-16] MEDS: HEPARIN SODIUM,PORCINE 5,000 UNIT/ML 1 ML VIAL SQ SCH (16:38)
--- NOTE | 2023-07-16 17:04 | P.CONS ---
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 He is currently hospitalized for scheduled left common and superficial femoral endarterectomy with patch angioplasty. Surgical procedure was completed by Dr. Ferguson. We were consulted for medical management throughout patient's hospitalization. Patient was seen and fully evaluated at the bedside upon return to room 367 from scheduled surgical procedure. Patient resting comfortably in bed. Reports controlled pain at this time. Dressing left groin is intact with small area of shadowing, no active bleeding or hematoma noted. Patient denies having any headache, lightheadedness, dizziness, chest pain, palpitations, shortness of breath, or experiencing any numbness or weakness in his extremities. Patient denies having any postoperative nausea or vomiting at this time. Review of systems: Pertinent positives and negatives as discussed in HPI, a complete review of systems was performed and all other systems are negative. Physical exam: Vital signs reviewed and stable. General: Nontoxic, no distress and appears stated age. Derm: Skin warm and dry, normal coloration for ethnicity. Head: Atraumatic, normocephalic and symmetric. Eyes: EOMs intact, no lid lag, and anicteric sclera Mouth: no lip lesions, mucus membranes moist Cardiovascular: regular rate and rhythm with normal S1S2, no murmur, positive posterior tibial pulses bilaterally, and cap refill < 2 seconds. Lungs: Respirations even, regular, and unlabored on room air. Lungs CTA bilaterally, no rhonchi, no rales, no wheezing, and no accessory muscle usage. Abdominal: soft, nontender to palpation, no guarding, no appreciable organomegaly Ext. No gross muscle atrophy, no edema, no contractures. Movement and sensation intact. Postsurgical bandage/dressing in place to left groin with mild shadowing, no signs of active bleeding through dressing or hematoma. Neuro: Speech clear, face symmetrical and CN II-XII grossly intact with no noted focal neuro deficits Psych: Alert and oriented to person, place, time, and situation. Appropriate and pleasant affect. Assessment and Plan of Care: Status post left common and superficial femoral endarterectomy with patch angioplasty. -Management per primary admitting vascular surgery team including DVT prop hylaxis, wound/dressing management, and progression of activity recommendations. -Orders placed for neurovascular checks to left lower extremity every 4 hours. -Orders placed for telemetry monitoring. -Symptomatic care and pain management. -Continue daily aspirin 81 mg daily, Plavix 75 mg daily, and atorvastatin 40 mg nightly. Peripheral arterial disease with bilateral lower extremity neuropathy and intermittent claudication Coronary artery disease Hypertension Hyperlipidemia -Continue daily medication regimen with aspirin 81 mg daily, atorvastatin 40 mg nightly, Plavix 75 mg daily, and lisinopril 10 mg daily. Anxiety -Continue daily medication regimen with Cymbalta 60 mg daily and BuSpar 15 mg twice daily. BPH -Continue daily medication regimen with Flomax 0.4 mg daily. GERD -Continue daily medication regimen with Protonix 40 mg daily. Data reviewed: -Reviewed operative report and reports of previous visits. -Preoperative labs reviewed showing hemoglobin stable at 14.0 and platelet count of 180. Orders placed for morning CBC, BMP, and magnesium. Will follow-up with postoperative labs and place additional orders as needed based upon these findings. -Vital signs reviewed. Blood pressure 107/54, heart rate 57, respiratory rate 15, temp 97.4 F, and SpO2 of 93% on room air. Thank you for allowing us to participate in the care of this pleasant patient. Do not hesitate to contact us with questions. Someone can be reached from the [facility] hospitalist group all hours of the day at [phone] or via perfect serve. Patient was seen independently by Nurse Practitioner. This document was prepared using [employer] dictation software. Please allow for errors in die engraver while rare they do occur. Naman Sandra NP rendered care for this patient independently, reviewed the findings and plan as documented in the note above. I did not physically speak with or examine the patient on this date. Past Medical History Past Medical History: Coronary Artery Disease (CAD), GERD/Reflux, Hyperlipidemia, Hypertension, Prostate Disorder, Vascular Disorder Additional Past Medical History / Comment(s): Peripheral Artery Disease, neuropathy both legs daily pain makes it hard to walk. History of Any Multi-Drug Resistant Organisms: None Reported Past Surgical History: Back Surgery, Cholecystectomy Additional Past Surgical History / Comment(s): Spinal cord stimulator trial (failed & removed over 10 yrs ago), stent femerol artery 2017, cataract surgery, left lower extremity angiogram. Past Anesthesia/Blood Transfusion Reactions: No Reported Reaction Additional Past Anesthesia/Blood Transfusion Reaction / Comm: No hx blood transfusion. Past Psychological History: No Psychological Hx Reported Smoking Status: Former smoker Past Alcohol Use History: Occasional Additional Past Alcohol Use History / Comment(s): Smoked 1 pack q48h, quit in 2006. Past Drug Use History: None Reported - Past Family History Mother Family Medical History: No Reported History Father Additional Family Medical History / Comment(s): Neuropathy to both legs. Medications and Allergies Home Medications Medication Instructions Recorded Confirmed Type Pantoprazole Sodium [Protonix] 40 mg PO QAM 12/11/14 07/16/23 History Aspirin 81 mg PO DAILY 01/13/19 07/16/23 History fentaNYL 100MCG/HR PATCH 100 mcg TOPICAL Q48H 01/13/19 07/16/23 History [Duragesic 100MCG/HR] Clopidogrel [Plavix] 75 mg PO DAILY #30 tab 01/20/19 07/09/23 Rx Benazepril HCl 10 mg PO QAM 10/15/22 07/16/23 History DULoxetine HCL [Cymbalta] 60 mg PO QAM 10/15/22 07/16/23 History Ondansetron Odt [Zofran ODT] 4 mg PO DAILY PRN 10/15/22 07/16/23 History Tamsulosin [Flomax] 0.4 mg PO QAM 10/15/22 07/16/23 History busPIRone HCL 15 mg PO BID 10/15/22 07/16/23 History Atorvastatin [Lipitor] 40 mg PO HS 07/09/23 07/16/23 History Allergies Allergy/AdvReac Type Severity Reaction Status Date / Time Sulfa (Sulfonamide Allergy Rash/Hives Verified 07/16/23 06:20 Antibiotics) Physical Exam Vitals: Vital Signs Temp Pulse Pulse Resp BP BP BP 07/16/23 11:17 47 L 16 94/52 95/47 07/16/23 11:02 55 L 16 102/59 101/44 07/16/23 10:47 48 L 16 110/59 108/44 07/16/23 10:32 57 L 16 116/55 110/44 07/16/23 10:17 61 16 135/62 130/51 07/16/23 10:02 98.2 F 62 12 115/64 107/43 07/16/23 06:27 98.7 F 62 16 147/66 Pulse Ox 07/16/23 11:17 96 07/16/23 11:02 95 07/16/23 10:47 96 07/16/23 10:32 96 07/16/23 10:17 98 07/16/23 10:02 98 07/16/23 06:27 95 Intake and Output 07/15/23 07/16/23 07/16/23 22:59 06:59 14:59 Intake Total 1554 Output Total 750 Balance 804 Intake: IV 1554 Output: Urine 700 Estimated Blood Loss 50 Other: Weight 72.1 kg Results CBC & Chem 7: 07/17/23 07:50 07/17/23 07:50 Labs: Abnormal Lab Results - Last 24 Hours (Table) 07/16/23 Range/Units 06:35 RBC 4.21 L (4.30-5.90) m/uL
[2023-07-16] MEDS: busPIRone HCl 10 MG TAB PO SCH (20:10)
[2023-07-16] MEDS: ATORVASTATIN 40 MG TAB PO SCH (20:10)
[2023-07-17 05:30] VITALS: RESP 18
[2023-07-17] MEDS: PANTOPRAZOLE 40 MG TABLET PO SCH (06:18)
[2023-07-17] MEDS: ASPIRIN 81 MG PO SCH (08:00)
[2023-07-17] MEDS: CLOPIDOGREL 75 MG TAB PO SCH (08:01)
[2023-07-17] MEDS: TAMSULOSIN 0.4 MG CAP.ER.24H PO SCH (08:01)
[2023-07-17] MEDS: DULoxetine HCL 60 MG CAPSULE.DR PO SCH (08:02)
[2023-07-17] MEDS: lisinopriL 10 MG TAB PO SCH (08:02)
[2023-07-17] MEDS: ONDANSETRON ODT 4 MG TAB PO PRN (08:06)
[2023-07-17 08:26] LABS: HCT 38.3 % (39.0-53.0); HGB 12.6 gm/dL (13.0-17.5); MCH 32.7 pg (25.0-35.0); MCHC 32.8 g/dL (31.0-37.0); MCV 99.7 fL (80.0-100.0); Mean Platelet Volume 7.4; Platelet Count 182 k/uL (150-450); RBC 3.84 m/uL (4.30-5.90); RDW 12.8 % (11.5-15.5); WBC 6.2 k/uL (3.8-10.6)
[2023-07-17 08:29] VITALS: BP 139/61; PULSE 55; TEMP 98.1
--- NOTE | 2023-07-17 08:40 | P.DS ---
Providers Date of admission: 07/16/23 05:44 Expected date of discharge: 07/17/23 Attending physician: Janet Ferguson DO Consults: 07/16/23 09:56 Consult Physician Routine Consulting Provider: Brandie Eastman Consult Reason/Comments: med mgmnt Do you want consulting provider notified?: Yes Primary care physician: [facility] Course: This is a 73-year-old male with severe lifestyle limiting claudication of his left lower extremity who was found to have femoral and superficial femoral artery occlusive disease. Yesterday he underwent left common and superficial f emoral endarterectomy with patch angioplasty. He is postop day #1 without any complaints. He has been afebrile, he has been up and ambulating to the bathroom. Ferguson catheter was discontinued and he is voided without complication. He is tolerating a regular diet. Pain has been well-managed. He has incentive spirometer at bedside which she has been using and SCDs in place. He is encouraged to ambulate in the hallways. WBC 6.2 hemoglobin 12.6 platelet count 182,000 sodium 136 potassium 4.1 BUN 11 creatinine 0.83 glucose 105. Plan is for discharge home today. Exam General appearance: The patient is alert, oriented, appears in no acute distress. HET: Head is normocephalic and atraumatic. Pupils are equal and reactive. Neck: Supple. Heart: Regular. Lungs: Equal expansion, normal respiratory effort. Abdomen: Soft, nontender, nondistended. Extremities: Normal skin color and turgor. Left groin with dressing marked, no active bleeding or hematoma noted. Palpable DP pulse, PT Doppler signal present. Neurological: No focal deficits. Strength and sensation are grossly intact. Assessment Left femoral artery occlusive disease status post left common and superficial femoral endarterectomy with patch angioplasty Severe lifestyle limiting claudication of left lower extremity Plan Discharge home today pending labs. Encourage ambulation. Discussed with patient no heavy lifting, pushing or pulling greater than 10 pounds. Limit stairs for 3 days. May shower tomorrow, no tub baths or soaking. Follow-up with Dr. Ferguson in 2 weeks. The impression and plan of care has been dictated as directed. Dr. Ferguson I performed a history and examination of this patient, discussed the same with the dictator. I agree with the dictator's note ,documented as a scribe. Any additional findings or plans will be noted. Procedures: Procedure: Left common and superficial femoral endarterectomy with patch angioplasty Surgeon: Janet Ferguson D.O. Patient Condition at Discharge: Stable Plan - Discharge Summary Discharge Rx Participant: No New Discharge Prescriptions: Continue Pantoprazole Sodium [Protonix] 40 mg PO QAM fentaNYL 100MCG/HR PATCH [Duragesic 100MCG/HR] 100 mcg TOPICAL Q48H Aspirin 81 mg PO DAILY Clopidogrel [Plavix] 75 mg PO DAILY #30 tab Benazepril HCl 10 mg PO QAM Tamsulosin [Flomax] 0.4 mg PO QAM DULoxetine HCL [Cymbalta] 60 mg PO QAM busPIRone HCL 15 mg PO BID Ondansetron Odt [Zofran ODT] 4 mg PO DAILY PRN PRN Reason: Nausea Atorvastatin [Lipitor] 40 mg PO HS Discontinued Ibuprofen [Advil] 200 mg PO Q6HR PRN PRN Reason: Pain Discharge Medication List Pantoprazole Sodium [Protonix] 40 mg PO QAM 12/11/14 [History] Aspirin 81 mg PO DAILY 01/13/19 [History] fentaNYL 100MCG/HR PATCH [Duragesic 100MCG/HR] 100 mcg TOPICAL Q48H 01/13/19 [History] Clopidogrel [Plavix] 75 mg PO DAILY #30 tab 01/20/19 [Rx] Benazepril HCl 10 mg PO QAM 10/15/22 [History] DULoxetine HCL [Cymbalta] 60 mg PO QAM 10/15/22 [History] Ondansetron Odt [Zofran ODT] 4 mg PO DAILY PRN 10/15/22 [History] Tamsulosin [Flomax] 0.4 mg PO QAM 10/15/22 [History] busPIRone HCL 15 mg PO BID 10/15/22 [History] Atorvastatin [Lipitor] 40 mg PO HS 07/09/23 [History] Follow up Appointment(s)/Referral(s): Janet Ferguson DO [STAFF PHYSICIAN] - 2 Weeks Activity/Diet/Wound Care/Special Instructions: No driving for two days. Avoid heavy lifting greater than 10 lbs , pushing, pulling, straining until cleared by surgeon, avoid flights of stairs for three days. ok to shower tomorrow but no baths, pools, soaking in tubs to avoid risk of infection until cleared by surgeon. signs of infection ie: fever, rash, drainage from incision site, swelling contact doctor or return to ER immediately. Heavy bleeding from incision site apply firm direct pressure and return to ER. Do not attempt to drive self. low sodium/low fat diet Discharge Disposition: HOME SELF-CARE
[2023-07-17] MEDS ORDERED: ACETAMINOPHEN TAB 325 MG TAB PO PRN (08:41)
[2023-07-17 08:43] LABS: African American GFR (CKD) >90 (>60 ml/min/1.73 sqM); Anion Gap 0 mmol/L; Blood Urea Nitrogen 11 mg/dL (9-20); Calcium 8.8 mg/dL (8.4-10.2); Carbon Dioxide 31 mmol/L (22-30); Chloride 105 mmol/L (98-107); Glucose 105 mg/dL (74-99); Non-African American GFR(CKD) 87 (>60 ml/min/1.73 sqM); Potassium 4.1 mmol/L (3.5-5.1); Sodium 136 mmol/L (137-145)
--- NOTE | 2023-07-17 12:45 | P.PN ---
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 He is currently hospitalized for scheduled left common and superficial femoral endarterectomy with patch angioplasty. Surgical procedure was completed by Dr. Ferguson. We were consulted for medical management throughout patient's hospitalization. Physical exam: Patient seen this morning. He is postoperative day 1 and appears to be doing well. Patient denies having any pain, or complaints. Ferguson catheter was discontinued and frequent urinating without any difficulties. Vascular surgery team just marked postoperative dressing and placed pressure dressing at this time. Patient denies experiencing any numbness or weakness. Denies any bleeding, or drainage. No signs of hematoma formation. Patient ambulating without difficulties. Postoperative labs reviewed and stable. From medical perspective patient is stable for discharge home with no further recommendations, may follow-up outpatient with PCP and vascular surgery team. Vital signs reviewed and stable. General: Nontoxic, no distress and appears stated age. Derm: Skin warm and dry, normal coloration for ethnicity. Head: Atraumatic, normocephalic and symmetric. Eyes: EOMs intact, no lid lag, and anicteric sclera Mouth: no lip lesions, mucus membranes moist Cardiovascular: regular rate and rhythm with normal S1S2, no murmur, positive posterior tibial pulses bilaterally, and cap refill < 2 seconds. Lungs: Respirations even, regular, and unlabored on room air. Lungs CTA bilaterally, no rhonchi, no rales, no wheezing, and no accessory muscle usage. Abdominal: soft, nontender to palpation, no guarding, no appreciable organomegaly Ext. No gross muscle atrophy, no edema, no contractures. Movement and sensation intact. Postsurgical bandage/pressure dressing in place to left groin and is clean, dry, and intact. Neuro: Speech clear, face symmetrical and CN II-XII grossly intact with no noted focal neuro deficits Psych: Alert and oriented to person, place, time, and situation. Appropriate and pleasant affect. Assessment and Plan of Care: Acute postoperative blood loss anemia -Preoperative hemoglobin 14.0 and postoperative hemoglobin of 12.6. This is a stable and expected finding. There is no need for transfusion or any further interventions at this time. No signs of active bleeding. No need for repeat CBC. Status post left common and superficial femoral endarterectomy with patch angioplasty. -Management per primary admitting vascular surgery team including DVT prophylaxis, wound/dressing management, and progression of activity scar mmendations. -Orders placed for neurovascular checks to left lower extremity every 4 hours. -Orders placed for telemetry monitoring. -Symptomatic care and pain management. -Continue daily aspirin 81 mg daily, Plavix 75 mg daily, and atorvastatin 40 mg nightly. Peripheral arterial disease with bilateral lower extremity neuropathy and intermittent claudication Coronary artery disease Hypertension Hyperlipidemia -Continue daily medication regimen with aspirin 81 mg daily, atorvastatin 40 mg nightly, Plavix 75 mg daily, and lisinopril 10 mg daily. Anxiety -Continue daily medication regimen with Cymbalta 60 mg daily and BuSpar 15 mg twice daily. BPH -Continue daily medication regimen with Flomax 0.4 mg daily. GERD -Continue daily medication regimen with Protonix 40 mg daily. Data reviewed: -Postoperative labs reviewed showing mild postoperative blood loss anemia with hemoglobin decreasing from 14 down to 12.6 this morning. BMP showing mild hypercarbia with bicarb of 31 otherwise unremarkable. -Vital signs reviewed and stable. Blood pressure 139/61, heart rate 52, respiratory rate 18, temp 98.1 F, SpO2 of 93% on room air. From medical perspective patient is stable for discharge home with no further recommendations, may follow-up outpatient with PCP and vascular surgery team. Thank you for allowing us to participate in the care of this pleasant patient. Do not hesitate to contact us with questions. Someone can be reached from the [facility] hospitalist group all hours of the day at [phone] or via [employer]. Patient was seen independently by Nurse Practitioner. This document was prepared using [employer] dictation software. Please allow for errors in 1st pressman on web press while rare they do occur. Naman Sandra NP rendered care for this patient independently, reviewed the findings and plan as documented in the note above. I did not physically speak with or examine the patient on this date. Objective - Vital Signs Vital signs: Vital Signs Temp 98.1 F 07/17/23 07:54 Pulse 55 L 07/17/23 08:18 Resp 18 07/17/23 07:54 BP 139/61 07/17/23 07:54 Pulse Ox 93 L 07/17/23 07:54 FiO2 Intake & Output 07/16/23 07/17/23 07/17/23 18:59 06:59 18:59 Intake Total 1934 Output Total 750 2675 Balance 1184 -2675 Intake: IV 1554 Oral 380 Output: Urine 700 2675 Estimated Blood Loss 50 Other: Voiding Method Indwelling Catheter Indwelling Catheter Toilet - Labs CBC & Chem 7: 07/17/23 07:50 07/17/23 07:50 Labs: Abnormal Lab Results - Last 24 Hours (Table) 07/17/23 Range/Units 07:50 RBC 3.84 L (4.30-5.90) m/uL Hgb 12.6 L (13.0-17.5) gm/dL Hct 38.3 L (39.0-53.0) %
== END 2023-07-17 10:25 | disposition home or self-care (01) | DRG 253 ==
LOC: 2ORMAIN 05:44 → 3SCARD 11:20
PROVIDERS: ADMIT Surgery; ATTEND Surgery
PROC: 04UL0KZ Supplement Left Femoral Artery with Nonautologous Tissue Substitute, Open Approach (ICD-10-PCS; principal; 2023-07-16 07:30)
PROC: 04CL0ZZ Extirpation of Matter from Left Femoral Artery, Open Approach (ICD-10-PCS; principal; 2023-07-16 07:30)
DX: I70.212 Atherosclerosis of native arteries of extremities with intermittent claudication, left leg (principal); D62 Acute posthemorrhagic anemia; G61.81 Chronic inflammatory demyelinating polyneuritis; I70.201 Unspecified atherosclerosis of native arteries of extremities, right leg; I25.10 Atherosclerotic heart disease of native coronary artery without angina pectoris; E78.5 Hyperlipidemia, unspecified; I10 Essential (primary) hypertension; M15.9 Polyosteoarthritis, unspecified; Z71.3 Dietary counseling and surveillance; N40.1 Benign prostatic hyperplasia with lower urinary tract symptoms; R35.0 Frequency of micturition; K21.9 Gastro-esophageal reflux disease without esophagitis; F41.9 Anxiety disorder, unspecified; R73.03 Prediabetes; E78.2 Mixed hyperlipidemia; K31.7 Polyp of stomach and duodenum; M54.32 Sciatica, left side; M54.31 Sciatica, right side; Z88.2 Allergy status to sulfonamides; Z79.02 Long term (current) use of antithrombotics/antiplatelets; Z79.82 Long term (current) use of aspirin; Z79.899 Other long term (current) drug therapy; Z71.82 Exercise counseling; Z87.891 Personal history of nicotine dependence
CPT/HCPCS: 80048; 85025; 85027; 86850; 86900; 86901; 88304; 88311